=== PATIENT | female | born 1965 | race Caucasian/White ===

== ENCOUNTER 2016-11-18 08:39 | Emergency (ER) | payer MEDICAID ==
[~2016-11-18] VITALS: Ht 152.4 cm; Wt 74.8 kg
[2016-11-18 11:14] VITALS: BP 109/75
== END 2016-11-18 11:14 | disposition home or self-care (01) ==
LOC: ED 08:39
DX: J06.9 Acute upper respiratory infection, unspecified (principal)
CPT/HCPCS: J7620

== ENCOUNTER 2018-09-09 06:54 | Emergency (ER) | payer BC ==
[~2018-09-09] VITALS: Ht 152.4 cm; Wt 78.5 kg
[2018-09-09 07:04] VITALS: BP 107/64; Ht 152.4 cm; Wt 78.5 kg
== END 2018-09-09 07:27 | disposition home or self-care (01) ==
LOC: ED 06:54
DX: H60.502 Unspecified acute noninfective otitis externa, left ear (principal)